=== PATIENT | male | born 1965 | race Two or more races ===

== ENCOUNTER 2021-04-14 11:03 | Outpatient (REF) | payer OTHER, SELFPAY ==
[2021-04-14 12:50] LABS: COVID-19 Test Negative (Negative)
== END 2021-04-14 11:04 | disposition home or self-care (01) ==
LOC: HO.LAB 11:03
PROVIDERS: Visit Provider Internal Medicine
DX: Z20.822 Contact with and (suspected) exposure to COVID-19 (principal)
CPT/HCPCS: 36415; 87635; C9803

== ENCOUNTER 2022-09-07 12:43 | Emergency (ER) | payer OTHER, SELFPAY ==
[2022-09-07 12:49] VITALS: BP 118/64; PULSE 78; RESP 18; TEMP 36.6; O2SAT 97; BMI 34.5
--- NOTE | 2022-09-07 12:49 | ED_ITS ---
HPI - Back Pain/Injury General Chief Complaint: Back Pain/Injury Stated Complaint: Low Back Pain No Injury Time Seen by Provider: 09/07/22 12:50 Source: patient, RN notes reviewed and old records reviewed Mode of arrival: ambulatory History of Present Illness HPI Narrative: 56-year-old male with no significant past medical history presenting to the ED complaining of left low back pain x 4 days s/p waking from sleeping. Denies known injury/trauma or fall, or heavy lifting. Denies radiation of pain to lower extremities, abdominal pain, nausea/vomiting, dysuria/hematuria, incontinence/retention, fever, numbness/tingling or weakness. Took Motrin with little relief MD elicited complaint: back pain Related Data Home Medications Medication Instructions Recorded Confirmed acetaminophen 500 mg tablet 1,500 mg PO QID PRN 05/12/22 (Tylenol Extra Strength) omeprazole 40 mg capsule,delayed 40 mg PO DAILY 05/12/22 release Previous Rx's Medication Instructions Recorded amoxicillin 875 mg-potassium 1 tab PO BID #10 tabs 05/12/22 clavulanate 125 mg tablet [id number]-pdwzwpick-gipfhsfhg 3.5 4 drp otic (ear) right QID 7 days 05/12/22 mg-10,000 unit/mL-1 % ear #10 mL drops,susp acetaminophen 500 mg tablet 500 mg PO Q6H PRN fever or pain 09/07/22 (Tylenol Extra Strength) #14 tabs cyclobenzaprine 5 mg tablet 5 mg PO Q8H PRN pain (scale score 09/07/22 7-10) 5 days #14 tabs lidocaine 5 % topical patch 1 patch topical DAILY PRN pain #30 09/07/22 (Lidoderm) ea naproxen 500 mg tablet 500 mg PO BID PRN pain 10 days #20 09/07/22 tabs Allergies Allergy/AdvReac Type Severity Reaction Status Date / Time No Known Allergies Allergy Verified 05/12/22 13:28 Review of Systems Review of Systems: Constitutional: No Fever, No Chills ENT/Mouth: No Ear Pain, No Nasal Congestion, No Sinus Pain, No Hoarseness, No sore throat, No Rhinorrhea, No Swallowing Difficulty Cardiovascular: No Chest Pain, No SOB Respiratory: No Cough, No Sputum, No Wheezing Gastrointestinal: No Nausea, No Vomiting, No Diarrhea, No Constipation, No Abdominal pain Genitourinary: No Dysuria, No Hematuria, No Urinary Incontinence/retention, No Urgency, No Flank Pain Musculoskeletal: + joint pain, No Myalgias, No Joint Swelling Skin: No Skin Lesions, No rash Neuro: No Weakness, No Numbness, No Paresthesias Yes all other systems are reviewed and are negative Constitutional: Constitutional: Reports as per [facility] Past Medical History Attestation statement: The following information was validated with the patient. Source: old records reviewed Physical Exam Vital Signs: Vital Signs: Last Vital Signs Temp 98 F 09/07/22 12:49 Pulse 78 09/07/22 12:49 Resp 18 09/07/22 12:49 BP 118/64 09/07/22 12:49 Pulse Ox 97 09/07/22 12:49 O2 Del Method Room Air 09/07/22 12:49 BMI result Body Mass Index 34.5 Const: General: cooperative, healthy appearing and no acute distress Orientation/consciousness: patient oriented x3 Limitations: no limitations HEENT: Head: Yes normal to inspection and Yes atraumatic Ears: hearing grossly normal bilaterally General nose exam: Normal external nose present Face and sinus: Yes normal facial exam Eyes: General: appearance normal, both eyes and all related structures EOM: EOMs intact bilaterally Neck: Neck: Yes normal visual inspection and Yes no meningeal signs Resp: Effort & Inspection: normal respiratory effort and no respiratory distress Cardio: Rate: regular rate Heart sounds: S1 normal heart sound present and S2 normal heart sound present GI: Inspection: Yes normal to inspection Palpation (GI): Soft to palpation, nontender, no guarding and not rigid : General: Yes no CVA tenderness Back/Spine/Pelvis: Other: No midline cervical/thoracic/lumbar spinous tenderness/step-off or deformity. + left lower lumbar paraspinal/MSK tenderness to palpation reproducing subjective complaint. No erythema/ecchymosis or warmth Back: no CVA tenderness Skin: Rashes: no rashes Wounds: no wounds Neuro: Other: Strength intact throughout. No saddle anesthesia. Sensation intact to light t ouch. Neurovascular intact distally General: patient oriented x3, gait normal, tone normal, moves all extremities, no meningeal signs and no focal motor deficits Gait exam (Neuro): Normal gait present Extrem: General: Yes normal to inspection Medical Decision Making Medical Decision Making MDM Narrative: 56-year-old male with no significant past medical history presenting to the ED complaining of left low back pain x 4 days s/p waking from sleeping. On exam vital signs stable, NAD, nontoxic appearing, physical exam as noted above. No midline spinous tenderness throughout or red flag symptoms. Ambulating with slow steady gait. Concern for MSK pain/strain vs spasming vs possible herniated disc. Lower suspicion for renal stone/pyelo, cauda equina/cord compression or epidural abscess plan: Pain management, PCP follow-up Results discussed with patient including worrisome signs and symptoms and strict return precautions, and when to return to the emergency department. They verbalized understanding and feel safe for discharge at this time. Differential Diagnosis Differential Diagnoses: The differential diagnosis associated with the presentation includes As above Lab Data MDM Lab Attestation statement: I reviewed the patient's lab results. Radiology Impression Discussion of test interpretation with radiology: I have reviewed the radiologist's reading. External Record Review External record reviewed: Inpatient record, Office record, Outpatient record, Prior outpatient labs, Prior outpatient radiology, Primary care record and Outside ED record Tests considered The following testing was considered but not selected: As above Discharge Plan Discharge Clinical Impression: Strain of lumbar region Patient Disposition: Home, Self-Care Instructions: Acute Low Back Pain (ED) Additional Instructions: Your pain is likely musculoskeletal Flexeril is a muscle relaxer, take at night as it makes you drowsy, do not drive, drink alcohol, or operate machinery while taking it Naproxen as an anti-inflammatory / pain medication, take with food Lidoderm patches are numbing patches, apply to painful area In addition take Tylenol at home If symptoms persist or worsen, pain becomes unbearable, you developed urinary retention or incontinence, or weakness return to the ED Prescriptions: New acetaminophen [Tylenol Extra Strength] 500 mg tablet 500 mg PO Q6H PRN (Reason: fever or pain) Qty: 14 0RF lidocaine [Lidoderm] 5 % adhesive patch,medicated 1 patch topical DAILY MDD remove after 12 hours PRN (Reason: pain) Qty: 30 0RF Rx Instructions: leave on most painful area for up to 12 hrs naproxen 500 mg tablet 500 mg PO BID PRN (Reason: pain) 10 Days Qty: 20 0RF cyclobenzaprine 5 mg tablet 5 mg PO Q8H PRN (Reason: pain (scale score 7-10)) 5 Days Qty: 14 0RF No Action omeprazole 40 mg capsule,delayed release(DR/EC) 40 mg PO DAILY acetaminophen [Tylenol Extra Strength] 500 mg tablet 1,500 mg PO QID PRN [id number] 3.5-10,000-1 mg/mL-unit/mL-% drops,suspension 4 drp otic (ear) right QID 7 Days Qty: 10 0RF amoxicillin-pot clavulanate 875-125 mg tablet 1 tab PO BID Qty: 10 0RF Referrals: Antwan Grady III, MD [Primary Care Provider] - 1 week
== END 2022-09-07 13:05 | disposition home or self-care (01) ==
PROVIDERS: Emergency Provider Emergency Medicine Emergency Medical Services; PCP Internal Medicine
DX: S39.012A Strain of muscle, fascia and tendon of lower back, initial encounter (principal); X50.1XXA Overexertion from prolonged static or awkward postures, initial encounter; Y93.84 Activity, sleeping; Y92.013 Bedroom of single-family (private) house as the place of occurrence of the external cause; Y99.9 Unspecified external cause status
CPT/HCPCS: 99282; 99283

== ENCOUNTER 2023-12-05 05:57 | Outpatient (REF) | payer MEDICAID, SELFPAY ==
[2023-12-05 06:22] LABS: MANUAL DIFF FLAG NO
[2023-12-05 07:13] LABS: Basophils Absolute Auto 0.1 X10*3/uL (0.0-0.2); Basophils Percent Auto 0.7 % (0-2); Eosinophils Absolute Auto 0.2 X10*3/uL (0.0-0.4); Eosinophils Percent Auto 2.5 % (0-4); Hematocrit 43.8 % (42.0-52.0); Hemoglobin 14.1 g/dl (14.0-18.0); Imm Gran Abs Auto 0.01 X10*3/uL (0.00-0.03); Imm Gran Pct Auto 0.1 % (0.0-0.4); Lymphocytes Absolute Auto 2.6 X10*3/uL (1.2-4.9); Lymphocytes Percent Auto 35.1 % (20-40); Mean Corpuscular HGB Conc 32.2 g/dl (31.0-36.0); Mean Corpuscular Hemoglobin 28.7 pg (27.0-33.0); Mean Platelet Volume 10.4 fL (9.4-12.4); Monocytes Absolute Auto 0.7 X10*3/uL (0.1-1.2); Monocytes Percent Auto 9.6 % (2-11); Neutrophils Absolute Auto 3.8 x10*3/uL (2.0-8.3); Platelet Count 267 X10*3/uL (160-400); Red Blood Count 4.92 X10*6/uL (4.60-5.80); Red Cell Distribution Width 13.8 % (11.0-16.0); White Blood Count 7.3 X10*3/uL (4.8-10.8)
[2023-12-05 07:39] LABS: Alanine Aminotransferase 40 U/L (0-40); Albumin Level 3.9 g/dL (3.5-5.0); Alkaline Phosphatase 72 U/L (39-117); Anion Gap 12 (12-20); Aspartate Amino Transferase 27 U/L (5-37); Bilirubin Total 0.4 mg/dL (0.0-1.0); Blood Urea Nitrogen 15 mg/dL (9-16); Calcium 9.8 mg/dL (8.4-10.2); Carbon Dioxide 27 mmol/L (22-29); Chloride 107 mmol/L (96-108); Cholesterol 177 mg/dL (<200); Estimated Glomerular Filt Rate > 60; Glucose Random 109 mg/dL (60-115); HDL Cholesterol 39 mg/dL (>40); LDL Cholesterol Calculated 91 mg/dL (<100); Potassium 4.6 mmol/L (3.3-5.1); Sodium 141 mmol/L (135-145); Total Protein 7.4 g/dL (6.5-8.0); Triglycerides 236 mg/dL (<150)
[2023-12-05 07:40] LABS: Estimated Average Glucose 117 mg/dL; Hemoglobin A1c % 5.7 % (<6.0)
== END 2023-12-05 05:58 | disposition home or self-care (01) ==
LOC: HO.LAB 05:57
PROVIDERS: PCP Internal Medicine Geriatric Medicine; Visit Provider Internal Medicine Geriatric Medicine
DX: Z13.220 Encounter for screening for lipoid disorders (principal); R73.02 Impaired glucose tolerance (oral); J30.89 Other allergic rhinitis; G47.10 Hypersomnia, unspecified; R06.83 Snoring
CPT/HCPCS: 36415; 80053; 80061; 83036; 85025

== ENCOUNTER → 2024-04-23 07:50 | Outpatient (BNV) | payer MEDICAID, SELFPAY | PROVIDERS: Emergency Provider Emergency Medicine; PCP Internal Medicine Geriatric Medicine; Visit Provider Radiology Diagnostic Radiology | DX: M79.672 Pain in left foot (principal) | CPT/HCPCS: 73630 ==

== ENCOUNTER 2024-09-18 12:12 | Outpatient (REF) | payer MEDICAID, SELFPAY ==
--- NOTE | ~2024-09-18 | XR_ITS ---
EXAMINATION: XR LUMBOSACRAL SPINE CLINICAL INFORMATION: 58 y.o male with acute low back pain COMPARISON: None available. TECHNIQUE: Three views of the lumbosacral spine. FINDINGS: There are 5 nonrib bearing lumbar segments. T12-L1: There is mild disc space narrowing. L1-2: There is mild disc space narrowing. L2-3: There is mild disc space narrowing. L3-4: There are small anterior osteophytes. There is facet sclerosis. L4-5: There is facet sclerosis and mild disc space narrowing. L5-S1: There is facet sclerosis SI joints are symmetrical and unremarkable. XR/XR lumbar spine 2-3V IMPRESSION: Mild multilevel degenerative disc disease and facet arthropathy. Electronically signed by: Monty Tellez MD 09/18/2024 01:22 PM EDT
--- OUTSIDE RECORDS SUMMARY | 2024-09-18 12:50 | XMS_ITS | Clinical Summary ---
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 Do not crush, chew, or split. 30 tablet 11 11/30/19 24 025 Active fluticasone (Flonase) 50 MCG/ACT nasal spray SPRAY 2 SPRAYS INTRANASALLY DAILY 09/14/19 24 Active cetirizine (ZyrTEC) 10 MG tabletIndicati ons:Acute cough Take 1 tablet (10 mg) by mouth Once per day. 30 tablet 5 09/19/19 25 025 Active albuterol 108 (90 Base) MCG/ACT inhalerIndicat ions:Acute cough Inhale 2 puffs every 6 (six) hours if needed for wheezing. 18 g 11 09/19/19 25 026 Active naproxen (Naprosyn) 500 MG tabletIndicati ons:Acute midline low back pain without sciatica Take 1 tablet by oral route twice daily as needed for moderate pain 30 tablet 1 09/19/19 25 Active cyclobenzaprin e (Flexeril) 5 MG tabletIndicati ons:Acute midline low back pain without sciatica Take 1 tablet (5 mg) by mouth every 8 (eight) hours if needed for muscle spasms. 30 tablet 09/19/19 25 026 Active lidocaine (Lidoderm) 5 % patchIndicatio ns:Acute midline low back pain without sciatica Apply topically to affected areas. Leave on for up to 12 hours 30 patch 1 09/19/19 25 Active loratadine (Claritin) 10 MG tablet TAKE 1 TABLET BY MOUTH EVERY DAY IN THE MORNING 90 tablet 1 01/09/20 24 025 Discontinued Active Problems Problem Noted Date Diagnosed Date CYNTHIA (obstructive sleep apnea) 07/12/2024 Diverticular disease 11/30/2023 Impaired glucose tolerance 11/30/2023 Class 1 obesity 11/30/2023 Obesity 11/30/2023 Snoring 11/30/2023 Resolved Problems Problem Noted Date Diagnosed Date Resolved Date At risk of disease 11/30/2023 Fatigue 11/30/2023 11/30/2023 Encounters Date Type Department Care Team Description 09/18/2024 11:30 AM EDT Office Visit [facility] [address] [place] [phone] [place], [place], [facility] Acute cough (Primary Dx); Acute midline low back pain without sciatica 09/18/2024 Travel 07/30/2024 Telephone [facility] [address] [place] [phone] Rose Marie Boyer RN 07/30/2024 Orders Only [facility] [address] [place] [id number] Jalen Burnham MD Bilateral impacted cerumen (Primary Dx) 07/29/2024 3:00 PM EDT Clinical Support [facility] [address] [place] [phone] Rose Marie Boyer, RN Bilateral impacted cerumen 07/29/2024 Travel 07/23/2024 9:20 AM EDT Office Visit [facility] [address] [place] [phone] Jalen Burnham MD Bilateral impacted cerumen (Primary Dx) 07/12/2024 1:45 PM EDT Telemedicine [facility] [address] [place] [phone] Alexander English MD CYNTHIA (obstructive sleep apnea) (Primary Dx) 07/12/2024 Travel 07/12/2024 Telephone [facility] [address] [place] [phone] Denise Spivey MA appt to telehealth 06/28/2024 Population Health Risk Score [facility] [address] [place] [phone] Provider, Population Health Generic from Last 3 Months Immunizations Immunization Administration Dates Next Due Influenza Injectable Quadriv alant Preservative Free IIV4 MDCK 05/16/2018 Influenza injectable quadriv alent preservative free 02/23/2023,01/15/2021,12/17/2019 Influenza, IIV3, injectable 01/29/2015, 3 Pfizer Covid-19 Vaccine 12+ 06/29/2023 Tdap 05/16/2018,02/21/2013 Family History Medical History Relation Name Comments Skin cancer Brother Diabetes Mother Relation Name Status Comments Brother Mother Social History Tobacco Use Types Packs/Day Years Used Date Smoking Tobacco: Never Passive Smoke Exposure: Never Smokeless Tobacco: Never Tobacco Cessation:Counseling Given: Not Answered Alcohol Use Standard Drinks/Week Comments Yes 0 (1 standard drink = 0.6 oz pur e alcohol) socially Depression Answer Date Recorded Patient Health Questionnaire-9 Score 0 11/30/2023 Patient Health Questionnaire-9 Score 0 11/30/2023 Last PHQ-9: Questionnaire Data Not on file 0 11/30/2023 Housing Stability Answer Date Recorded What is your housing situation today? I have anat grossman 11/20/[address] you li ve. Do you have problems with any of the following? None of the above 11/20/2023 Food Insecurity Answer Date Recorded Within the past 12 months, y ou worried that your food would run out before you got money to buy more: Never True 11/20/2023 Within the past 12 months,th e food you bought just didn't last and you didn't have enough money to get more: Never True 08/2023 Transportation Answer Date Recorded In the past 12 months, has l ack of transportation kept you from medical appts, meetings, work or from getting things needed for daily living? No 11/20/2023 Utilities Answer Date Recorded In the past 12 months, has t he [employer], gas, oil or water company threatened to shut off services in your home? No 11/20/2023 Depression Answer Date Recorded Patient Health Questionnaire-2 Score 0 11/30/2023 Internet Access Answer Date Recorded Internet Access Q1 Yes 12/17/2023 Internet Access Q2 Not on file 12/17/2023 Sex and Gender Information Value Date Recorded Sex Assigned at Male 05/08/2023 10:07 AM EST Legal Sex Male 8:54 AM EDT Gender Identity Male 05/08/2023 10:07 AM EST Sexual Orientation Straight 05/08/2023 10 :07 AM EST Last Filed Vital Signs Vital Sign Reading Time Taken Comments Blood Pressure 126/84 09/18/2024 11:26 AM EDT Pulse 80 09/18/2024 11:26 AM EDT Temperature 36.9 ??C (98.5 ??F) 09/18/2024 11:26 AM E DT Respiratory Rate 20 09/18/2024 11:26 AM EDT Oxygen Saturation 98% 07/23/2024 9:11 AM EDT Inhaled Oxygen Concentration - - Weight 91.8 kg (202 lb 6.4 oz) 09/18/2024 11:26 AM EDT Height 172.7 cm (5' 8 ) 09/18/2024 11:26 AM EDT Body Mass Index 30.77 09/18/2024 11:26 AM EDT Plan of Treatment Health Maintenance Due Date Last Done Comments CT Colonography 1965 Colonoscopy 1965 Colorectal Cancer Screening 1965 FIT DNA/Cologuard 1965 FIT 1965 FOBT 1965 HIV Screening 1965 Sigmoidoscopy 1965 Disability Screening 1965 Hepatitis C Screening 12/07/1983 Hepatitis B Vaccines (1 of 3 - 19+ 3-dose series) 1984 Zoster Vaccines (1 of 2) 12/07/2015 SDOH Screening 11/19/2024 11/20/2023 Alcohol/Substance Use Screening 11/29/2024 11/30/2023 Depression Screening 11/29/2024 11/30/2023, 11/30/19 24 Diabetes: Hemoglobin A1C 12/04/2024 12/05/2023 Tobacco Screening 09/18/2025 09/18/2024 DTaP/Tdap/Td Vaccines (3 - Td or Tdap) 05/16/2028 05/16/2018, 02/21/2013 Lipid Panel 12/04/2028 12/05/2023 RSV Patients and Patients Aged 60 years or older (1 - 1-dose 75+ series) 2040 COVID-19 Vaccine Completed 03/28/2024, , 02/23/2023, Additional history exists Influenza Vaccine Completed 03/28/2024, , 01/15/2021, Additional history exists Pneumococcal Vaccine: 50+ Years Completed 03/28/2024 HIB Vaccines Aged Out No longer eligi ble based on patient's age to complete this topic HPV Vaccines Aged Out No longer eligi ble based on patient's age to complete this topic Hepatitis A Vaccines Aged Out No long er eligible based on patient's age to complete this topic IPV Vaccines Aged Out No longer eligi ble based on patient's age to complete this topic Meningococcal B Vaccine Aged Out No l onger eligible based on patient's age to complete this topic Meningococcal Vaccine Aged Out No monica pantera eligible based on patient's age to complete this topic RSV under 20 months Aged Out No longe r eligible based on patient's age to complete this topic Rotavirus Vaccines Aged Out No longer eligible based on patient's age to complete this topic Procedures Procedure Name Priority Date/Time Associated Diagnosis Comments OK REMOVAL IMPACTED CERUMEN IRRIGATION/LVG UNILAT Routine 07/29/2024 4:01 PM EDT Bilateral impacted cerumen HEMOGLOBIN A1C Routine 12/05/2023 6:21 AM EDT Impaired glucose tolerance Hypersomnia Snoring Screening for cholesterol level LIPID PANEL, STANDARD Routine 12/05/2023 6:21 AM EDT Impaired glucose tolerance Hypersomnia Snoring Screening for cholesterol level from Last 3 Months or Most Recently Relevant to Health Maintenance Results * OK REMOVAL IMPACTED CERUMEN IRRIGATION/LVG UNILAT (07/29/2024 4:01 PM EDT) Narrative Rose Marie Boyer RN - 07/29/2024 4:01 PM EDT Rose Marie Boyer RN ? 07/29/2024 ??4:44 PM Ear Cerumen Removal Date/Time: 07/29/2024 4:01 PM Performed by: Rose Marie Boyer RN Authorized by: Alexander English MD ?? Consent: ??Consent obtained: ??Verbal ??Consent given by: ??Patient ??Risks, benefits, and alternatives were discussed: yes ?Risks discussed: ??Dizziness and incomplete removal Procedure details: ??Location: ??L ear and R ear ??Procedure type: irrigation ?Procedure outcomes: unable to remove cerumen ?? Post-procedure details: ??Inspection: ??Some cerumen remaining and TM intact ??Hearing quality: ??Normal ??Procedure completion: ??Tolerated Alexander English MD IN CLINIC/BEDSIDE ORDERABLES Fin al Result * Hemoglobin A1c (12/05/2023 6:21 AM EDT) Hemoglobin A1c 5.7 <6.0 % [facility] Comment:Hemoglobin A1C Refer ence Range Adults: 4.8 - 6.0 % Non diabetic: < 6.0 % Goal: < 7.0 %Additional Action Suggested: > 8.0 %Note: Hemoglobin A1c results are invalid for patients with abnormal amounts of HbF. Blood transfusions may impact the HbA1c concentration in the patient sample. Estimated Average Glucose 117 mg/dL [facility] Comment:eAG = Estimated ave rage glucose which is %A1C expressed asaverage glucose, using the formula of the X6D-[id number] Glucose study (ADAG), Diabetes Care, Vol.31,#8,Nov. 2007 Blood Venous blood specimen / Unknown 12/05/2023 6:21 AM EDT 12/05/2023 6:21 AM EDT us Alexander English MD LAB BLOOD ORDERABLES Final Resul t [facility] [address] [place] [phone] * (ABNORMAL) Lipid Panel, Standard (12/05/2023 6:21 AM EDT) Triglycerides 236(H) <150 mg/dL [facility] Comment:Desirable Triglyceri de: less than 150 mg/dLBorderline High Triglyceride 150-199 mg/dLHigh Triglyceride: 200-499 mg/dLVery High Triglyceride: greater than or equal to 5OO mg/dL Cholesterol 177 <200 mg/dL [facility] Comment:Desirable Cholestero l: less than 200 mg/dLBorderline High Cholesterol: 200-239 mg/dLHigh Cholesterol: greater than 239 mg/dL LDL Cholesterol Calculated 91 <100 mg/dL [facility] Comment:Desirable LDL: less than 100 mg/dLNear Optimal/Above Optimal LDL: 110- 129 mg/dLBorderline High LDL: 130-159 mg/dLHigh LDL: 160-189 mg/dLVery High LDL: greater than or equal to 190 mg/dL HDL Cholesterol 39(L) >40 mg/dL [facility] Comment:Desirable HDL: great er than 40 mg/dL Note: This HDL assay may give artificially low results in patients with liver disease. Blood Venous blood specimen / Unknown 12/05/2023 6:21 AM EDT 12/05/2023 6:21 AM EDT us Alexander Name LAB BLOOD ORDERABLES Final Resul t [facility] [address] [place] [address] [phone] from Last 3 Months or Most Recently Relevant to Health Maintenance Insurance [facility] C3 [employer] PARTIAL Care Teams File Machine Operator Relationship Specialty Start Date End Date Name, MD Alexander [address] [place] [phone] PCP - General Internal Medicine 11/30/23
== END 2024-09-18 12:13 | disposition home or self-care (01) ==
LOC: HO.HHCX 12:12
PROVIDERS: Visit Provider Registered Nurse
DX: M54.50 Low back pain, unspecified (principal)
CPT/HCPCS: 72100

== ENCOUNTER → 2024-09-18 12:12 | Outpatient (BNV) | payer MEDICAID, SELFPAY | PROVIDERS: Visit Provider Radiology Diagnostic Radiology | DX: M54.50 Low back pain, unspecified (principal) | CPT/HCPCS: 72100 ==